=== PATIENT | female | born 2005 | race Two or more races ===

== ENCOUNTER 2023-08-18 12:04 | Emergency (ER) | payer OTHER ==
[~2023-08-18] VITALS: Ht 160 cm; Wt 84.6 kg
[2023-08-18 12:09] VITALS: TEMP 98.8
[2023-08-18] MEDS: dexamethasone sod phosphate 10mg/ml inj IM STA (12:55)
[2023-08-18] MEDS ORDERED: AZIT250T83 PO (14:26)
[2023-08-18] MEDS ORDERED: PRED20TA PO (14:26)
[2023-08-18 14:51] VITALS: BP 126/90; PULSE 89; RESP 16; O2SAT 100
== END 2023-08-18 14:53 | disposition home or self-care (01) ==
LOC: ER 12:05
DX: J22 Unspecified acute lower respiratory infection (principal); J45.901 Unspecified asthma with (acute) exacerbation; Z20.822 Contact with and (suspected) exposure to COVID-19
CPT/HCPCS: 36415; 71045; 87811; 96372; 99284; J1100

== ENCOUNTER 2023-09-08 23:41 | Emergency (ER) | payer OTHER ==
[~2023-09-08] VITALS: Ht 160 cm; Wt 83.5 kg
[2023-09-09] MEDS: benzonatate 100mg capsule PO ONE (02:36)
[2023-09-09] MEDS: ipratropium 0.5 MG/2.5ML nebule IH ONE (02:52)
[2023-09-09] MEDS: albuterol 2.5 MG/3 ML nebule CONTNEB PRN (02:52)
[2023-09-09 02:53] VITALS: PULSE 84; RESP 6; O2SAT 98
[2023-09-09 04:03] VITALS: PULSE 111; RESP 16; O2SAT 97
[2023-09-09 05:11] VITALS: BP 121/80; PULSE 103; O2SAT 98
[2023-09-09 05:37] VITALS: TEMP 98.5
== END 2023-09-09 05:41 | disposition home or self-care (01) ==
LOC: ER 23:42
DX: J45.909 Unspecified asthma, uncomplicated (principal)
CPT/HCPCS: 71046; 94640; 94644; 94760; 99285; A7015